=== PATIENT | female | born 1990 | race African-American/Black ===

== ENCOUNTER 2019-06-22 13:56 | Emergency (ER) | payer OTHER ==
[~2019-06-22] VITALS: Ht 170.2 cm; Wt 61.2 kg
[2019-06-22 14:47] LABS: URINE BILIRUBIN NEGATIVE (Negative); URINE BLOOD NEGATIVE (Negative); URINE CLARITY CLEAR; URINE COLOR YELLOW; URINE GLUCOSE-RANDOM NEGATIVE (Negative); URINE KETONES NEGATIVE (Negative); URINE LEUKOCYTES-REFLEX NEGATIVE (Negative); URINE NITRITE-REFLEX NEGATIVE (Negative); URINE PROTEIN TRACE (Negative); URINE SPECIFIC GRAVITY 1.025 (1.005-1.030)
[2019-06-22 15:31] LABS: HEMATOCRIT 32.8 % (37.0-47.0); MCH 27.9 pg (26.0-34.0); MCHC 33.6 g/dL (28.0-37.0); MCV 83.1 fL (80.0-100.0); MPV 9.2 fl. (7.2-11.1); NUCLEATED RBCS 0 /100WBC; PLATELET COUNT* 174 thou/uL (150-400); RBC 3.95 mil/uL (4.20-5.00); RDW-CV 15.2 % (10.5-14.5); WBC 14.1 thou/uL (4.0-11.0)
[2019-06-22 15:40] LABS: CREATININE 0.8 mg/dL (0.6-1.3); POTASSIUM 4.2 mmol/L (3.5-5.1)
[2019-06-22 15:45] LABS: ALBUMIN 2.1 g/dL (3.4-5.0); TOTAL BILIRUBIN 0.5 mg/dL (<0.1-1.0); TOTAL PROTEIN 6.5 g/dL (6.4-8.2)
[2019-06-22 16:03] LABS: ABSOLUTE LYMPHOCYTES 1.6 thou/uL (0.8-5.3); ABSOLUTE MONOCYTES 0.4 thou/uL (0.0-1.2); ABSOLUTE NEUTROPHILS 12.1 thou/uL (1.6-8.1)
[2019-06-22 16:04] LABS: HYPOCHROMASIA 1+; PLATELET ESTIMATE ADEQUATE
[2019-06-22 16:05] LABS: CLUMPED PLTS MODERATE
[2019-06-22 16:36] LABS: ESR (SEDRATE) 50 mm/hr (0-20)
[2019-06-22 21:03] VITALS: BP 111/62
== END 2019-06-22 21:03 | disposition short-term general hospital (02) ==
LOC: M.ERS 13:56
PROVIDERS: Emergency Medicine Emergency Medical Services
DX: M46.1 Sacroiliitis, not elsewhere classified (principal)